=== PATIENT | female | born 2000 | race Caucasian/White ===

== ENCOUNTER 2020-12-06 21:40 | Emergency (ER) | payer OTHER ==
[~2020-12-06 21:40] MED LIST: 24HR ALLERGY REL5 MG PO; ALLERGY RELIEF10 M3 PO; AMOXICILLIN500 MG PO; ATARAX25 MG PO; BUSPIRONE HCL10 MG PO; DIFLUCAN150 MG PO; MOTRIN600 MG PO; NAPROXEN500 MG PO; PREDNISONE 20MG20 MG PO; SINGULAIR10 MG PO; SPRINTEC 28 DA1 EACH PO; TOPAMAX25 M1 PO; VENTOLIN HFA IN18 GM INH; ZOFRAN4 MG PO; ZOFRAN8 MG PO; ZOLOFT100 MG PO
[2021-02-28] MEDS ORDERED: PROZAC40 MG PO (10:08)
[2021-02-28] MEDS ORDERED: BACLOFEN 10MG T10 MG PO (10:08)
[2021-02-28] MEDS ORDERED: PRENATAL FORMU1 EACH PO (10:08)
[2021-03-29] MEDS ORDERED: IBUPROFEN800 M1 PO (10:26)
== END 2020-12-06 23:46 | disposition left against medical advice (07) ==
LOC: FER 21:40
DX: Z53.8 Procedure and treatment not carried out for other reasons (principal)

== ENCOUNTER → 2021-03-29 | Day surgery (SDC) | payer OTHER ==
[~2021-03-29] VITALS: Ht 152.4 cm; Wt 71.7 kg
[~2021-03-29] MED LIST changes: +BACLOFEN 10MG T10 MG PO; +IBUPROFEN800 M1 PO; +PRENATAL FORMU1 EACH PO; +PROZAC40 MG PO
[2021-03-29 08:32] LABS: HCG (URINE) SCREEN NEGATIVE (NEGATIVE)
== END | disposition home or self-care (01) ==
LOC: FAS 03-08 08:00
PROVIDERS: Obstetrics & Gynecology
DX: L82.0 Inflamed seborrheic keratosis (principal); L72.0 Epidermal cyst; N84.3 Polyp of vulva; A63.0 Anogenital (venereal) warts; N94.89 Other specified conditions associated with female genital organs and menstrual cycle; L91.8 Other hypertrophic disorders of the skin; F41.9 Anxiety disorder, unspecified; J45.909 Unspecified asthma, uncomplicated; G43.709 Chronic migraine without aura, not intractable, without status migrainosus; F32.9 Major depressive disorder, single episode, unspecified; N92.1 Excessive and frequent menstruation with irregular cycle; E66.9 Obesity, unspecified; K21.9 Gastro-esophageal reflux disease without esophagitis; R94.31 Abnormal electrocardiogram [ECG] [EKG]; Z79.899 Other long term (current) drug therapy
CPT/HCPCS: 84703; 93005; J2250; J2405; J2704; J3010; J7120

== ENCOUNTER 2021-07-12 16:02 | Emergency (ER) | payer OTHER ==
[2021-07-12 17:06] LABS: BASOPHIL 0.4 % (0-2); EOSINOPHIL 1.8 % (0-5); HCT 40.6 % (37.0-47.0); HGB 13.5 g/dl (12.5-16.0); LYMPHOCYTE 27.3 % (15-48); MCHC 33.3 g/dL (32.0-36.0); MCV 90.2 fL (78.0-100.0); MPV 10.3 fL (6.0-9.5); NEUTROPHIL 61.2 % (41-80); NRBC 0; PLT 267 K/uL (150-400); RDW 12.7 % (11.5-14.0); WBC 7.4 K/uL (4.0-10.5)
[2021-07-12 17:14] LABS: ALBUMIN 3.8 g/dL (3.4-5.0); BILIRUBIN - TOTAL 0.3 mg/dL (0.2-1.0); BUN/CREAT RATIO (CALC) 13.8 RATIO; CREATININE 0.58 mg/dL (0.51-0.95); GLOBULIN (CALCULATION) 3.6 g/dL; POTASSIUM 3.7 mmol/L (3.5-5.1); TOTAL PROTEIN 7.4 g/dL (6.4-8.2)
[2021-07-12 17:55] LABS: BILIRUBIN NEGATIVE (NEGATIVE); BLOOD NEGATIVE Ery/uL (NEGATIVE); CLARITY CLEAR (CLEAR); COLOR YELLOW (YELLOW); GLUCOSE (U) NORMAL (NORMAL); LEUKOCYTES NEGATIVE Leu/uL (NEGATIVE); NITRITE NEGATIVE (NEGATIVE); PROTEIN NEGATIVE (NEGATIVE); SPECIFIC GRAVITY 1.015 (1.001-1.030); UROBILINOGEN 0.2 mg/dL (0.2-1.0)
[2021-07-12] MEDS ORDERED: ZOFRAN4 M1 PO (18:20)
== END 2021-07-12 18:40 | disposition home or self-care (01) ==
LOC: FER 16:02
PROVIDERS: Nurse Practitioner Family
DX: R55 Syncope and collapse (principal); R11.2 Nausea with vomiting, unspecified; F41.9 Anxiety disorder, unspecified; J45.909 Unspecified asthma, uncomplicated
CPT/HCPCS: 36415; 80053; 81003; 82150; 83690; 85025; 99284; J7030

== ENCOUNTER 2022-04-16 21:39 | Emergency (ER) | payer OTHER ==
[~2022-04-16 21:39] MED LIST changes: +ZOFRAN4 M1 PO
[2022-04-16 23:27] LABS: BASOPHIL 0.4 % (0-2); EOSINOPHIL 1.8 % (0-5); HCT 41.2 % (37.0-47.0); HGB 13.8 g/dl (12.5-16.0); LYMPHOCYTE 22.6 % (15-48); MCH 29.8 pg (25.0-31.0); MCHC 33.5 g/dL (32.0-36.0); MONOCYTE 7.5 % (0-12); MPV 9.6 fL (6.0-9.5); NEUTROPHIL 67.3 % (41-80); NRBC 0; PLT 287 K/uL (150-400); RBC 4.63 M/uL (4.20-5.40); RDW 13.1 % (11.5-14.0); WBC 9.1 K/uL (4.0-10.5)
[2022-04-16 23:52] LABS: CORONAVIRUS 2019 SARS-COV-2 NEGATIVE (NEGATIVE); INFLUENZA A NAA NEGATIVE (NEGATIVE)
[2022-04-16 23:57] LABS: ALBUMIN 4.2 g/dL (3.4-5.0); ALKALINE PHOSHATASE 113 U/L (46-116); ALT 43 U/L (14-59); AST 27 U/L (15-37); BILIRUBIN - TOTAL 0.4 mg/dL (0.2-1.0); BUN 12 mg/dL (7-18); BUN/CREAT RATIO (CALC) 16.9 RATIO; CHLORIDE 100 mmol/L (98-107); CO2 (BICARBONATE) 31 mmol/L (21-32); CREATININE 0.71 mg/dL (0.51-0.95); GLOBULIN (CALCULATION) 4.3 g/dL; GLUCOSE 110 mg/dL (74-106); LIPASE 70 U/L (73-393); POTASSIUM 3.6 mmol/L (3.5-5.1); TOTAL PROTEIN 8.5 g/dL (6.4-8.2)
[2022-04-17 00:02] LABS: BILIRUBIN NEGATIVE (NEGATIVE); BLOOD TRACE-INTACT Ery/uL (NEGATIVE); CLARITY CLEAR (CLEAR); GLUCOSE (U) NORMAL (NORMAL); LEUKOCYTES NEGATIVE Leu/uL (NEGATIVE); NITRITE NEGATIVE (NEGATIVE); PROTEIN NEGATIVE (NEGATIVE); SPECIFIC GRAVITY <=1.005 (1.001-1.030); UROBILINOGEN 0.2 mg/dL (0.2-1.0); pH 6.5 (5.0-9.0)
[2022-04-17 00:07] LABS: COLOR STRAW (YELLOW)
[2022-04-17 00:08] LABS: AMPHETAMINES NEGATIVE (NEGATIVE); BARBITURATES NEGATIVE (NEGATIVE); ECSTASY (MDMA) NEGATIVE (NEGATIVE); MARIJUANA (THC) NEGATIVE (NEGATIVE); METHADONE NEGATIVE (NEGATIVE); OPIATES NEGATIVE (NEGATIVE); OXYCODONE NEGATIVE (NEGATIVE)
[2022-04-17 00:09] LABS: BACTERIA TRACE; URINARY RBC RARE; URINARY WBC RARE
== END 2022-04-17 00:58 | disposition home or self-care (01) ==
LOC: FER 21:39
PROVIDERS: Internal Medicine
DX: R42 Dizziness and giddiness (principal); F41.9 Anxiety disorder, unspecified; J45.909 Unspecified asthma, uncomplicated; Z20.822 Contact with and (suspected) exposure to COVID-19
CPT/HCPCS: 36415; 80053; 80305; 81001; 83690; 83735; 84145; 84439; 84443; 84484; 85025; 93005; J2060; U0002